=== PATIENT | male | born 1935 | race Caucasian/White ===

== ENCOUNTER 2018-10-06 07:30 | Inpatient (IN) | payer MEDICARE, BC ==
[~2018-10-06] VITALS: Ht 167.6 cm; Wt 99.3 kg
[2018-10-29] MEDS ORDERED: NITR0.4T28 SL (13:01)
[2018-10-29] MEDS ORDERED: METO50TA82 PO (13:01)
[2018-10-29] MEDS ORDERED: ESOM20CA PO (13:01)
[2018-10-29] MEDS ORDERED: OXYC5CAP2 PO (13:01)
[2018-10-29] MEDS ORDERED: STATIN PO (13:01)
[2018-10-29] MEDS ORDERED: ALLO100T30 PO (13:01)
[2018-11-03] MEDS ORDERED: TRANEXAMIC ACID 100 MG/ML, 10ML ONE (06:30)
[2018-11-03] MEDS ORDERED: VANCOMYCIN 1,000 MG ONE (06:30)
[2018-11-03] MEDS ORDERED: SODIUM CHLORIDE 0.9% 100 ML ONE (06:30)
[2018-11-03] MEDS ORDERED: KETOROLAC 60 MG/2 ML ONE (06:30)
[2018-11-03] MEDS ORDERED: EPINEPHRINE 1 MG/ML, 1ML ONE (06:30)
[2018-11-03] MEDS ORDERED: ROPIvacaine/PF 0.2%, 20 ML ONE (06:30)
[2018-11-03] MEDS ORDERED: LACTATED RINGERS 1,000 ML IV SCH (06:31)
[2018-11-03 06:36] VITALS: BP 151/89
[2018-11-03] MEDS ORDERED: FENTANYL PF 250 MCG/5ML ONE (07:14)
[2018-11-03] MEDS ORDERED: MIDAZOLAM 1 MG/ML, 2ML ONE (07:14)
[2018-11-03] MEDS ORDERED: PHENYLEPHRINE 10 MG/ML ONE (07:19)
[2018-11-03] MEDS ORDERED: ROCURONIUM 10 MG/ML,10ML ONE (07:19)
[2018-11-03] MEDS ORDERED: LABETALOL 5MG/ML, 20ML ONE (07:19)
[2018-11-03] MEDS ORDERED: SUCCINYLCHOLINE 20 MG/ML, 10ML ONE (07:19)
[2018-11-03] MEDS ORDERED: ACETAMINOPHEN 500 MG TABLET PO ONE (07:30)
[2018-11-03] MEDS ORDERED: TAMSULOSIN 0.4 MG CAP.ER.24H PO ONE (07:30)
[2018-11-03] MEDS ORDERED: GABAPENTIN 300 MG CAPSULE PO ONE (07:30)
[2018-11-03] MEDS ORDERED: ONDANSETRON ODT 8 MG PO ONE (07:30)
[2018-11-03] MEDS ORDERED: MIDAZOLAM 1 MG/ML, 2ML IV PRN (08:00)
[2018-11-03] MEDS ORDERED: ALBUTEROL/IPRATROPIUM 2.5MG/0.5MG, 3 ML NPPB PRN (08:00)
[2018-11-03] MEDS ORDERED: hydrALAzine 20 MG/ML, 1ML IV PRN (08:00)
[2018-11-03] MEDS ORDERED: OXYcodone 5 MG/5 ML ORAL.SOL UDC PO PRN (08:00)
[2018-11-03] MEDS ORDERED: PROMETHAZINE 25 MG/ML, 1ML IV PRN (08:00)
[2018-11-03] MEDS ORDERED: FENTANYL PF 100 MCG/2ML IV PRN (08:00)
[2018-11-03] MEDS ORDERED: HYDROmorphone 2 MG/ML, 1ML IVPush PRN (08:00)
[2018-11-03] MEDS ORDERED: METOPROLOL 1 MG/ML, 5ML IV PRN (08:00)
[2018-11-03] MEDS ORDERED: ONDANSETRON 2MG/ML, 2ML IV PRN ×2 (08:00→09:30)
[2018-11-03] MEDS ORDERED: LIDOCAINE-MPF 2% ,5ML ONE (08:10)
[2018-11-03] MEDS ORDERED: PROPOFOL 10 MG/ML, 20ML ONE (08:11)
[2018-11-03] MEDS ORDERED: DEXAMETHASONE 4 MG/ML, 1ML ONE (08:11)
[2018-11-03] MEDS ORDERED: CEFAZOLIN 1,000 MG ONE (08:11)
[2018-11-03] MEDS ORDERED: FENTANYL PF 100 MCG/2ML ONE (08:15)
[2018-11-03] MEDS ORDERED: PANTOPRAZOLE 20MG TABLET PO PRN (09:30)
[2018-11-03] MEDS ORDERED: LORazepam 1MG TABLET PO PRN (09:30)
[2018-11-03] MEDS ORDERED: ACETAMINOPHEN 650 MG/20.3 ML UDC PO PRN (09:30)
[2018-11-03] MEDS ORDERED: MAGNESIUM HYDROXIDE 8%, 30ML UDC PO PRN (09:30)
[2018-11-03] MEDS ORDERED: BISACODYL 10 MG SUPP PR PRN (09:30)
[2018-11-03] MEDS ORDERED: DIPHENHYDRAMINE 25 MG CAPSULE PO PRN (09:30)
[2018-11-03] MEDS ORDERED: ONDANSETRON 4 MG TABLET PO PRN (09:30)
[2018-11-03] MEDS ORDERED: ALUMINUM/MAG/SIMETHICONE 30 ML UDC PO PRN (09:30)
[2018-11-03] MEDS ORDERED: OXYcodone IR 5MG TABLET PO PRN (09:30)
[2018-11-03] MEDS ORDERED: morphine SULFATE 10 MG/ML, 1ML IV PRN (09:30)
[2018-11-03] MEDS ORDERED: SENNA/DOCUSATE TABLET PO PRN (09:30)
[2018-11-03] MEDS ORDERED: ZOLPIDEM 5MG TABLET PO PRN (09:30)
[2018-11-03] MEDS ORDERED: HYDROcodone/APAP 5/325 TABLET PO PRN (09:30)
[2018-11-03] MEDS ORDERED: PROMETHAZINE 12.5 MG SUPP PR PRN (09:30)
[2018-11-03] MEDS ORDERED: NITROGLYCERIN 0.4 MG BOTTLE (25 TABS) SL PRN (09:30)
[2018-11-03] MEDS ORDERED: PROMETHAZINE 25 MG/ML, 1ML IM PRN (09:30)
[2018-11-03] MEDS ORDERED: OXYcodone 5 MG/5 ML ORAL.SOL UDC ONE (09:53)
[2018-11-03] MEDS ORDERED: TRANEXAMIC ACID 1,000 MG in SODIUM CHLORIDE 0.9% 100 ML IVPB ONE (10:00)
[2018-11-03 12:48] VITALS: BP 112/63
[2018-11-03] MEDS: D5%-0.45% NACL 1,000 ML IV SCH (14:24)
[2018-11-03] MEDS: CEFAZOLIN PMX 2GM/50ML 50 ML IVPB SCH ×2 (16:51→23:48)
[2018-11-03 20:00] VITALS: BP 94/63
[2018-11-03] MEDS: DOCUSATE 100 MG CAPSULE PO SCH (20:48)
[2018-11-03] MEDS: ATORVASTATIN 20 MG TABLET PO SCH (20:48)
[2018-11-03] MEDS: TAMSULOSIN 0.4 MG CAP.ER.24H PO SCH (21:41)
[2018-11-04 00:14] VITALS: BP 101/60
[2018-11-04] MEDS: D5%-0.45% NACL 1,000 ML IV SCH ×3 (01:00→21:00)
[2018-11-04 03:53] VITALS: BP 108/69
[2018-11-04] MEDS: ASPIRIN 81 MG TABLET EC PO SCH ×2 (05:43→17:12)
[2018-11-04] MEDS ORDERED: DEXAMETHASONE 4 MG/ML, 1ML IVPush SCH (06:00)
[2018-11-04 06:52] VITALS: BP 105/68
[2018-11-04] MEDS: KETOROLAC 30 MG/1 ML IV SCH ×2 (08:42→17:12)
[2018-11-04] MEDS: ALLOPURINOL 100 MG TABLET PO SCH (08:43)
[2018-11-04] MEDS: METOPROLOL TARTRATE 50 MG TABLET PO SCH (08:43)
[2018-11-04] MEDS: DOCUSATE 100 MG CAPSULE PO SCH ×2 (08:44→20:41)
[2018-11-04 15:30] VITALS: BP 134/78
[2018-11-04] MEDS: ATORVASTATIN 20 MG TABLET PO SCH (20:41)
[2018-11-04] MEDS: TAMSULOSIN 0.4 MG CAP.ER.24H PO SCH (20:43)
[2018-11-04 21:17] VITALS: BP 101/64
[2018-11-05] MEDS: KETOROLAC 30 MG/1 ML IV SCH (01:40)
[2018-11-05 03:31] VITALS: BP 115/71
[2018-11-05] MEDS: ASPIRIN 81 MG TABLET EC PO SCH (05:22)
[2018-11-05 06:44] VITALS: BP 118/74
[2018-11-05] MEDS: D5%-0.45% NACL 1,000 ML IV SCH (07:00)
[2018-11-05] MEDS: METOPROLOL TARTRATE 50 MG TABLET PO SCH (08:15)
[2018-11-05] MEDS: TAMSULOSIN 0.4 MG CAP.ER.24H PO SCH (08:15)
[2018-11-05] MEDS: ALLOPURINOL 100 MG TABLET PO SCH (08:15)
[2018-11-05] MEDS: DOCUSATE 100 MG CAPSULE PO SCH (08:16)
[2018-11-05] MEDS ORDERED: TAMS-11 PO (08:55)
[2018-11-05] MEDS ORDERED: ASPI81TA45 PO (08:56)
== END 2018-11-05 09:45 | disposition home or self-care (01) | DRG 470 ==
LOC: ORIP 11-03 05:36 → 4NOR 11-03 10:36 → DCLOUNGE 11-05 09:25
PROVIDERS: ADMIT Orthopaedic Surgery; ATTEND Orthopaedic Surgery
PROC: 0SRB06A Replacement of Left Hip Joint with Oxidized Zirconium on Polyethylene Synthetic Substitute, Uncemented, Open Approach (ICD-10-PCS; principal; 2018-11-03 07:30)
DX: M16.12 Unilateral primary osteoarthritis, left hip (principal); F17.290 Nicotine dependence, other tobacco product, uncomplicated; I10 Essential (primary) hypertension; K21.9 Gastro-esophageal reflux disease without esophagitis; E78.5 Hyperlipidemia, unspecified; G89.29 Other chronic pain; M10.9 Gout, unspecified; R33.9 Retention of urine, unspecified; I25.10 Atherosclerotic heart disease of native coronary artery without angina pectoris; Z95.1 Presence of aortocoronary bypass graft; Z88.8 Allergy status to other drugs, medicaments and biological substances; Z87.11 Personal history of peptic ulcer disease; Z98.1 Arthrodesis status; Z88.2 Allergy status to sulfonamides; Z88.1 Allergy status to other antibiotic agents
CPT/HCPCS: 36415; 72170; 85014; 85018; 86850; 86900; 93005; C1713; G0378; J0171; J0690; J1100; J1885; J2250; J2704; J2795; J3010; J3370; J3490; Q0162; C1776; J0330; J2370